=== PATIENT | female | born 1980 | race American Indian/Alaskan Native ===

== ENCOUNTER 2017-03-17 17:53 | Emergency (ER) | payer OTHER ==
[2017-03-17 19:57] VITALS: BP 141/67
[2017-03-17] MEDS ORDERED: MOTRIN PO ONE (23:00)
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
[2017-03-18 02:00] LABS: HCG Qualitative,Urine Negative (Negative)
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
== END 2017-03-18 03:20 | disposition home or self-care (01) ==
LOC: ED 17:53
DX: S13.4XXA Sprain of ligaments of cervical spine, initial encounter (principal); S39.012A Strain of muscle, fascia and tendon of lower back, initial encounter; F17.200 Nicotine dependence, unspecified, uncomplicated; V49.49XA Driver injured in collision with other motor vehicles in traffic accident, initial encounter; Y93.89 Activity, other specified; Y92.89 Other specified places as the place of occurrence of the external cause; Y99.8 Other external cause status
CPT/HCPCS: 72100; 81025